=== PATIENT | male | born 1980 | race Caucasian/White ===

== ENCOUNTER → 2021-11-30 | Outpatient (CLI) | payer BC ==
[~2021-11-30] MED LIST: RNT150T PO
--- NOTE | 2021-11-30 11:23 | Diagnostic Imaging Report ---
INDICATION: Palpable lump in the right anterior neck for three weeks. FINDINGS: Sonographic interrogation of the area of palpable lump in the right anterior neck was performed. There is an ovoid complex mass in the anterior neck measuring 2.2 x 1.8 x 0.8 cm. This is just below the skin surface. This does not appear to be associated with the thyroid gland. This has somewhat irregular margins. No internal vascularity is seen. This could represent a complex fluid collection such as an abscess. No other abnormalities are seen. IMPRESSION: Irregular complex mass at the area of palpable abnormality in the right neck. Infectious/inflammatory process and perhaps small abscess cannot be entirely excluded. CT soft tissue neck study with contrast would be useful for further characterization. Dictated by: Dictated on workstation # [id number]
== END ==
LOC: RAD 09:15
PROVIDERS: ATTEND Surgery
DX: R22.1 Localized swelling, mass and lump, neck (principal)
CPT/HCPCS: 76536

== ENCOUNTER → 2021-12-12 | Outpatient (CLI) | payer BC ==
[~2021-12-12] MED LIST changes: +CATHETER FLUSH 10 ML SYR IV PRN; +HOLD METFORMIN - RECEIVED CONTRAST 20 ML VIAL IV SCH; +IOHEXOL 350 MG/ML 100 ML (OMNIPAQUE 350) VIAL IV ONE; +NS 100 ML (IVPB) BAG IV ONE
--- NOTE | 2021-12-12 09:21 | Diagnostic Imaging Report ---
PROCEDURE: CT neck soft tissue with contrast. TECHNIQUE: Multiple contiguous axial images were obtained through the neck after the administration of contrast. Auto Exposure Controls were utilized during the CT exam to meet ALARA standards for radiation dose reduction. INDICATION: History of mass on the right side of the neck. COMPARISON: None. Findings: Soft tissue fullness is visualized in the skin of the neck on the right measuring 1.9 x 1.3 cm. There is central hyperattenuation within this focus. There is associated thickening of the adjacent platysmas muscle on the right. No extension of this is seen into the deep soft tissues of the neck. Mildly prominent cervical lymph nodes are seen bilaterally. No pathologically enlarged lymphadenopathy is seen in the neck. The posterior nasopharynx and oropharynx demonstrate appropriate symmetry. There is no displacement of the parapharyngeal fat planes. There is no abnormal process evident within the prevertebral or retropharyngeal space. There is no evidence of abnormal thickening of the epiglottis or aryepiglottic folds. The vocal folds appear symmetric. The parotid, submandibular and thyroid gland are unremarkable. The vascular structures the neck demonstrate no evidence of high-grade stenosis on this nondedicated exam. The visualized lung apices are clear. The visualized intracranial contents demonstrate no evidence of pathologic intracranial enhancement or intracranial mass effect. Visualized orbital contents are unremarkable. Mucosal thickening is seen in the left maxillary sinus. The mastoids and middle ears are clear. No acute osseous abnormality in the cervical spine. Impression: 1. Area of soft tissue fullness with likely central phlegmon in the right neck. This appears to represent an area of inflammation/infection and may be drainable. No extension into the deep soft tissues of the neck is seen. Recommend direct visualization and follow-up as indicated. 2. Mildly prominent cervical lymph nodes bilaterally, likely reactive. Dictated by: Dictated on workstation # [id number]
== END ==
LOC: RAD 08:15
PROVIDERS: ATTEND Nurse Practitioner
DX: R22.1 Localized swelling, mass and lump, neck (principal)
CPT/HCPCS: 70491

== ENCOUNTER 2021-12-26 05:33 | Outpatient (CLI) | payer BC ==
[~2021-12-26] VITALS: Ht 193 cm; Wt 111.1 kg
[~2021-12-26 05:33] MED LIST changes: -CATHETER FLUSH 10 ML SYR IV PRN; -HOLD METFORMIN - RECEIVED CONTRAST 20 ML VIAL IV SCH; -IOHEXOL 350 MG/ML 100 ML (OMNIPAQUE 350) VIAL IV ONE; -NS 100 ML (IVPB) BAG IV ONE
[2021-12-27] MEDS ORDERED: CETI10TA49 PO (09:48)
== END 2021-12-26 09:40 | disposition home or self-care (01) ==
LOC: PREOP 05:33
PROVIDERS: ATTEND Surgery
DX: Z01.818 Encounter for other preprocedural examination (principal)

== ENCOUNTER 2021-12-27 07:27 | Day surgery (SDC) | payer BC ==
[~2021-12-27] VITALS: Ht 193 cm; Wt 111.1 kg
[2021-12-27] VITALS (9 sets, daily range): BP systolic 95–126; BP diastolic 52–81
[2021-12-27] MEDS ORDERED: LACTATED RINGERS 1,000 ML IV PRN (07:45)
[2021-12-27] MEDS ORDERED: ceFAZolin 2 GM IV Premixed 50 ML IV ONE (07:45)
--- NOTE | 2021-12-27 09:02 | Progress Note-Pre Operative ---
Pre-Operative Progress Note H&P Reviewed The H&P was reviewed, patient examined and no changes noted. Date Seen by Provider: Dec 27, 2021 Time Seen by Provider: 09:02 Date H&P Reviewed: Dec 27, 2021 Time H&P Reviewed: 09:02 Pre-Operative Diagnosis: RIGHT NECK MASS ALEXANDER ROBLES DO Dec 27, 2021 09:02
[2021-12-27] MEDS ORDERED: CETI10TA49 PO (09:48)
[2021-12-27] MEDS ORDERED: ONDANSETRON 4 MG/2 ML (SDV) Z0FRAN ONE (10:27)
[2021-12-27] MEDS ORDERED: proPOfol 200 MG/20 ML (DIPRIVAN) VIAL IV ONE (10:27)
[2021-12-27] MEDS ORDERED: SEVOFLURANE (ULTANE) 15 ML INHAL SOLN ONE ×2 (10:27→11:33)
[2021-12-27] MEDS ORDERED: LIDOCAINE PF 2% 5 ML (XYLOCAINE) VIAL ONE (10:27)
[2021-12-27] MEDS ORDERED: fentaNYL INJ 100 MCG/2 ML AMP ONE (10:28)
[2021-12-27] MEDS ORDERED: MIDAZOLAM 2 MG/2 ML (VERSED) VIAL ONE (10:28)
[2021-12-27] MEDS ORDERED: LIDOCAINE/EPI 1%-1:100,000 (XYLOCAINE) 20ML ONE (10:33)
--- NOTE | 2021-12-27 11:39 | Discharge Inst-Simple/Standard ---
Discharge Inst-Standard Patient Instructions/Follow Up Plan of Care/Instructions/FU: 2 weeks Aba Activity as Tolerated: Yes Discharge Diet: Regular Diet Other Inst to Patient Follow up Appt: Make appointment for 2 week. Instructions: No strenuous activity. May shower in 24 hours, no tub bath or soaking. Use incentive spirometer at home as directed. No Smoking Skin/Wound Care: You have special glue over your incision that will fall off on it's own. Symptoms to Report: Appetite Changes, Extremity Discoloration, Numbness/Tingling, Swelling Increased, Bleeding Excessive, Eyesight Changes, Pain Increased, Urine Color Change, Constipation(Persistent), Fever over 101 degree F, Pain/Pressure in qu[address] st, Urinating Difficulty, Cough Up/Vomit Blood, Heart Beat Irreg/Pounding, Pain/Pressure in jaw, Vaginal Bleeding Increase, Cramps in feet or legs, Lightheadedness, Pain/Pressure in shoulder, Diarrhea(Persistent), Memory Changes Suddenly, Questions/Concerns, Weight gain consecutive days, Dizziness/Fainting, Nausea/Vomiting, Shortness of Breath, Weight gain over 2 pounds If questions or concerns contact your physician Or seek help at emergency department. ALEXANDER ROBLES DO Dec 27, 2021 11:39
--- NOTE | 2021-12-27 11:41 | Progress Note-Post Operative ---
Post-Operative Progess Note Surgeon (s)/Commercial Credit Analyst (s) Surgeon ALEXANDER ROBLES DO Commercial Credit Analyst: na Pre-Operative Diagnosis RIGHT NECK MASS Post-Operative Diagnosis same Procedure & Operative Findings Date of Procedure 12/27/21 Procedure Performed/Findings excision right neck mass 1.8x5.5cm Anesthesia Type general Estimated Blood Loss Estimated blood loss (mL): minimal Specimens/Packing Specimens Removed right neck mass ALEXANDER ROBLES DO Dec 27, 2021 11:41
[2021-12-27] MEDS ORDERED: morphine INJ 10 MG/ML 1ML (SYR OR VIAL) IVP ONE (11:45)
[2021-12-27] MEDS ORDERED: HYDROmorphone 2 MG/ML VIAL (DILAUDID) IV ONE (11:45)
[2021-12-27] MEDS ORDERED: ONDANSETRON 4 MG/2 ML (SDV) Z0FRAN IVP PRN (11:45)
--- NOTE | 2021-12-27 11:45 | Anesthesia-General Post-Op ---
General Patient Condition Mental Status/LOC: Same as Preop Cardiovascular: Satisfactory Nausea/Vomiting: Absent Respiratory: Satisfactory Pain: Controlled Complications: Absent Post Op Complications Complications None Follow Up Care/Instructions Patient Instructions None needed. Anesthesia/Patient Condition Patient Condition Patient is doing well, no complaints, stable vital signs, no apparent adverse anesthesia problems. No complications reported per nursing. RYAN RAMIREZ CRNA Dec 27, 2021 11:45
--- NOTE | 2021-12-28 04:52 | OPERATIVE REPORT ---
DATE OF SERVICE: 12/27/2021 PREOPERATIVE DIAGNOSIS: Right neck mass. POSTOPERATIVE DIAGNOSIS: Right neck mass. PROCEDURE: Excision of right neck mass, 1.8 x 5.5 cm. SURGEON: Alexander Troncoso DO ANESTHESIA: General. ESTIMATED BLOOD LOSS: Minimal. COMPLICATIONS: None. INDICATIONS: The patient is a 41-year-old male with a right neck mass, suspected cyst. He understands risks and benefits of procedure and wishes to proceed. Consent was signed in the chart. DESCRIPTION OF PROCEDURE: The patient was taken to the operating suite, was prepped and draped in sterile fashion. Timeout was performed. Local anesthetic was infiltrated around the mass. An elliptical incision measuring 1.8 x 5.5 cm was made around the mass, skin and subcutaneous tissue was removed using cautery. Hemostasis was achieved. The wound was then irrigated with copious amounts of irrigation. Subcutaneous tissues were then reapproximated using 3-0 Vicryl. The skin was then closed using 4-0 Monocryl in a running fashion. The area was then washed and dried and Skin Affix was placed over the incision. The patient tolerated the procedure well without any complications. He was taken to recovery room in stable condition. Job ID: [id number] DocumentID: [id number] Dictated Date: 12/27/2021 19:03:15 Information Director Date: 12/28/2021 04:52:17 Dictated By: ALEXANDER TRONCOSO DO
== END 2021-12-27 13:20 | disposition home or self-care (01) ==
LOC: SDC 07:27
PROVIDERS: ATTEND Surgery
DX: R22.1 Localized swelling, mass and lump, neck (principal); L02.11 Cutaneous abscess of neck
CPT/HCPCS: 87081; 88305